=== PATIENT | female | born 1960 | race Caucasian/White ===

== ENCOUNTER 2018-09-08 16:02 | Observation (INO) | payer BC, OTHER ==
[~2018-09-08] VITALS: Ht 154.9 cm; Wt 60.0 kg
--- NOTE | 2018-09-08 16:57 | STROKE ---
Date/Time of Note Date/Time of Note DATE: 09/08/18 TIME: 16:54 Patient Information General Patient location: emergency Arrival Date Age 57 Gender female Weight 60 kg Vital Signs Vital Signs Vital Signs Date Temp Pulse Resp B/P (MAP) Pulse Ox O2 O2 Flow FiO2 Time Delivery Rate 09/08/18 98.1 67 18 127/91 99 16:09 (103) Patient History Current Medications Allergies: Coded Allergies: Penicillins (Verified Allergy, Unknown, 09/08/18) Labs Coagulation Labs: Coagulation Test 09/08/18 16:25 Activated Partial Thromboplast Time 28.0 Sec (23.0-35.0) History & Physical History of Present Illness 57 F PMH HTN LKW 0900 PST with right-sided numbness in the face and arm. Symptoms have improved but she still has some mild right hemianesthesia. NIH Stroke Scale NIH Stroke Scale [id number] Total Score: [id number] Date/Time Recorded DATE: 09/08/18 TIME: 16:40 Submitted By Dominic Romero t-PA Imaging Review Date/Time Imaging Reviewed DATE: 09/08/18 TIME: 16:54 t-PA Administration Weight 60 kg Recommedation submitted by Dominic Romero Recommendations Recommendation 57 F with right hemianesthesia. Not in tPA window. No LVO suspected. - F/u formal NCHCT read - Agree with admitting for TIA/stroke studies: MRI Brain, MRA Head/Neck, TTE with bubble, blood cultures, telemetry, EKG, LDL, A1c, SP, PT, OT - Would perform bedside swallow testing in ED and load with ASA 325 mg PO and Plavix 600 mg PO if passes. Would continue ASA at 81 mg PO QD and Plavix at 75 mg PO QD starting tomorrow. Duration of dual-antiplatelet therapy per local Neurology team - Frequent neuro checks per protocol - Strict normonatremia, normothermia, normoglycemia - Permissive SBP to 180 for first 24 hours during stroke work-up - Please consult local Neurologist to guide further recDOMINIC Barbosa MD Sep 08, 2018 16:57
[2018-09-08] MEDS ORDERED: TELM40TA3 PO (17:09)
[2018-09-08] MEDS ORDERED: ACETAMINOPHEN 325 MG TAB PO PRN ×2 (17:30→19:00)
[2018-09-08] MEDS ORDERED: ASPIRIN 325 MG TAB PO ONE (17:30)
[2018-09-08] MEDS ORDERED: ONDANSETRON 4 MG INJ IV PRN ×2 (17:30→19:00)
--- NOTE | 2018-09-08 17:43 | ERD ---
ER Documentation Chief Complaint Chief Complaint numbness in right arm and right side of face started 2 hours ago HPI Patient is a 57-year-old female with hypertension who presents with weakness and numbness. A video band leader was used for the entire history and physical exam. The patient's right arm feels numb in the right side of her face feels numb as well. It started at 9 AM. She had no slurred speech. The symptoms wer e coming and going and lasted 20 minutes at a time. She did take her blood pressure medicines this morning. She does not remember the name of her primary doctor. She said that this morning when it started she could not move her right arm. ROS All systems reviewed and are negative except as per history of present illness. Medications Home Meds Reported Medications Telmisartan (Telmisartan) 40 Mg Tablet, 40 MG PO DAILY, TAB 09/08/18 Allergies Allergies: Coded Allergies: Penicillins (Verified Allergy, Unknown, 09/08/18) PMhx/Soc Hx Cardiac Disorders: Yes (HTN) Hx Alcohol Use: No Hx Substance Use: No Hx Tobacco Use: No Smoking Status: Former smoker FmHx Family History: No diabetes Physical Exam Vitals Vital Signs Date Temp Pulse Resp B/P (MAP) Pulse Ox O2 O2 Flow FiO2 Time Delivery Rate 09/08/18 98.1 67 18 127/91 99 16:09 (103) Physical Exam Const: No acute distress Head: Atraumatic Eyes: Normal Conjunctiva ENT: Normal External Ears, Nose and Mouth. Neck: Full range of motion. No meningismus. Resp: Clear to auscultation bilaterally Cardio: Regular rate and rhythm, no murmurs Abd: Soft, non tender, non distended. Normal bowel sounds Skin: No petechiae or rashes Back: No midline or flank tenderness Ext: No cyanosis, or edema Neur: Awake and alert, cranial nerves II through XII intact, equal bagger meat strength bilaterally, no pronator drift, no slurred speech Psych: Normal Mood and Affect Result Diagram: 09/08/18 1625 09/08/18 1625 Results 24 hrs Laboratory Tests Test 09/08/18 16:25 White Blood Count 5.7 10^3/ul Red Blood Count 4.68 10^6/ul Hemoglobin 12.3 g/dl Hematocrit 39.7 % Mean Corpuscular Volume 84.8 fl Mean Corpuscular Hemoglobin 26.3 pg Mean Corpuscular Hemoglobin Concent 31.0 g/dl Red Cell Distribution Width 13.6 % Platelet Count 220 10^3/UL Mean Platelet Volume 11.8 fl Immature Granulocytes % 0.300 % Neutrophils % 53.3 % Lymphocytes % 36.3 % Monocytes % 7.3 % Eosinophils % 2.3 % Basophils % 0.5 % Nucleated Red Blood Cells % 0.0 /100WBC Immature Granulocytes # 0.020 10^3/ul Neutrophils # 3.1 10^3/ul Lymphocytes # 2.1 10^3/ul Monocytes # 0.4 10^3/ul Eosinophils # 0.1 10^3/ul Basophils # 0.0 10^3/ul Nucleated Red Blood Cells # 0.0 10^3/ul Prothrombin Time 11.8 Sec Prothrombin Time Ratio 0.9 INR International Normalized Ratio 0.86 Activated Partial Thromboplast Time 28.0 Sec Sodium Level 140 mmol/L Potassium Level 3.9 mmol/L Chloride Level 104 mmol/L Carbon Dioxide Level 27 mmol/L Anion Gap 9 Blood Urea Nitrogen 10 mg/dl Creatinine 0.43 mg/dl Est Glomerular Filtrat Rate mL/min > 60 mL/min Glucose Level 124 mg/dl Hemoglobin A1c 5.8 % Calcium Level 8.9 mg/dl Creatine Kinase 84 IU/L Creatine Kinase Index 0.7 Creatinine Kinase MB (Mass) 0.55 ng/ml Troponin I < 0.012 ng/ml Triglycerides Level 456 mg/dl Cholesterol Level 223 mg/dl LDL Cholesterol, Calculated 98 mg/dl HDL Cholesterol 34 mg/dl Cholesterol/HDL Ratio 6.5 RATIO Ethyl Alcohol Level < 10.0 mg/dl Current Medications Medications Dose Sig/Hipolito Start Time Status Last (Trade) Ordered Route PRN Stop Time Admin Dose Reason Admin Aspirin 325 mg ONCE ONCE 09/08/18 DC 09/08/18 (Aspirin) PO 17:30 17:29 09/08/18 17:31 Ondansetron 4 mg ER BRIDGE 09/08/18 HCl (Zofran PRN IV 17:30 Inj) NAUSEA/VOMITI 09/09/18 17:29 NG 650 mg ER BRIDGE 09/08/18 Acetaminophen PRN PO 17:30 (Tylenol .MILD PAIN 09/09/18 17:29 Tab) 1-3 OR TEMP Procedures/MDM CT head read by radiology. CTA of the head and neck read by radiology shows no large vessel occlusion. Patient is a 57-year-old female who presents with symptoms consistent with a TIA. Timeline is as follows: Code stroke was called at the time of my evaluation. Tele-neurology was called at 1630. I spoke with Dr. Romero from telemetry neurology at 1633. He said that given the symptoms the patient would not be a TPA candidate at this time but he would do an evaluation and likely recommend admission for MRI. CT of the head and neck as well as noncontrast CT was read by radiology at 1645. I believe the patient likely has TIA and will need further workup and has potential for acute stroke in the next 48 hours. The patient has an ABCD squared score of 3. The patient will be admitted to the care of Dr. Bello. ABCD Score for TIA from [employer] on 09/08/2018 All calculations should be rechecked by clinician prior to use RESULT SUMMARY: 3 points Per the validation study, 0-3 points: Low Risk 2-Day Stroke Risk: 1.0% 7-Day Stroke Risk: 1.2% 90-Day Stroke Risk: 3.1% INPUTS: Age ? 60 years > 0 = No BP ? 140/90 mmHg > 0 = No Clinical features of the TIA > 2 = Unilateral weakness Duration of symptoms > 1 = 10-59 minutes History of diabetes > 0 = No Departure Diagnosis: Primary Impression: TIA (transient ischemic attack) Additional Impression: Numbness Condition: CELE Sanchez MD Sep 08, 2018 17:43
[2018-09-08 17:57] VITALS: PULSE 64
[2018-09-08 18:07] VITALS: BP 164/81; PULSE 59; RESP 12
[2018-09-08 18:20] VITALS: Ht 154.9 cm; Wt 60.0 kg
[2018-09-08] MEDS ORDERED: hydrALAzine 20 MG INJ IV PRN (19:00)
--- NOTE | 2018-09-08 19:23 | HP ---
Date/Time of Note Date/Time of Note DATE: 09/08/18 TIME: 19:15 Assessment/Plan VTE Prophylaxis SCD contraindicated: other Pharmacological prophylaxis: other Pharm contraindication: other Lines/Catheters IV Catheter Type (from Nrsg): Saline Lock Assessment/Plan Assessment/Plan TIA- Transient Ischemic Attack - Admit to tele - neuro checks - low fat /low chol diet - PT/OT eval - CBC, CMP, TSH, 2-D Echo, Sammy carotid doppler - ASA - Hypertension -- Cozzar 50 mg po daily - Hydralazine 20 mg IV Q6 PRN > [id number] - Former smoker - Reinforce smoking cessation Dw Dr Bello/staff Result Diagram: 09/08/18 1625 09/08/18 1625 Results 24hrs Laboratory Tests Test 09/08/18 16:25 09/08/18 17:18 White Blood Count 5.7 Red Blood Count 4.68 Hemoglobin 12.3 Hematocrit 39.7 Mean Corpuscular Volume 84.8 Mean Corpuscular Hemoglobin 26.3 L Mean Corpuscular Hemoglobin Concent 31.0 L Red Cell Distribution Width 13.6 Platelet Count 220 Mean Platelet Volume 11.8 H Immature Granulocytes % 0.300 Neutrophils % 53.3 Lymphocytes % 36.3 Monocytes % 7.3 Eosinophils % 2.3 Basophils % 0.5 Nucleated Red Blood Cells % 0.0 Immature Granulocytes # 0.020 Neutrophils # 3.1 Lymphocytes # 2.1 Monocytes # 0.4 Eosinophils # 0.1 Basophils # 0.0 Nucleated Red Blood Cells # 0.0 Prothrombin Time 11.8 L Prothrombin Time Ratio 0.9 INR International Normalized Ratio 0.86 Activated Partial Thromboplast Time 28.0 Sodium Level 140 Potassium Level 3.9 Chloride Level 104 Carbon Dioxide Level 27 Anion Gap 9 Blood Urea Nitrogen 10 Creatinine 0.43 L Est Glomerular Filtrat Rate mL/min > 60 Glucose Level 124 Hemoglobin A1c 5.8 Calcium Level 8.9 Creatine Kinase 84 Creatine Kinase Index 0.7 Creatinine Kinase MB (Mass) 0.55 Troponin I < 0.012 Triglycerides Level 456 H Cholesterol Level 223 H LDL Cholesterol, Calculated 98 HDL Cholesterol 34 L Cholesterol/HDL Ratio 6.5 Ethyl Alcohol Level < 10.0 H Urine Color COLORLESS Urine Clarity CLEAR Urine pH 7.0 Urine Specific [place] 1.038 H Urine Ketones NEGATIVE Urine Nitrite NEGATIVE Urine Bilirubin NEGATIVE Urine Urobilinogen NEGATIVE Urine Leukocyte Esterase NEGATIVE Urine Microscopic RBC 0 Urine Microscopic WBC 1 Urine Hemoglobin 2+ H Urine Glucose NEGATIVE Urine Total Protein NEGATIVE Urine Opiates Screen Negative Urine Barbiturates Negative Urine Amphetamines Screen Negative Urine Benzodiazepines Screen Negative Urine Cocaine Screen Negative Urine Cannabinoids Negative HPI/ROS Admit Date/Time Admit Date/Time Sep 08, 2018 at 17:11 Hx of Present Illness HPI Patient is a 57-year-old female with hypertension who presents with weakness and numbness. A video ground crew chief was used for the entire history and physical exam. The patient's right arm feels numb in the right side of her face feels numb as well. It started at 9 AM. She had no slurred speech. The symptoms were coming and going and lasted 20 minutes at a time. She did take her blood pressure medicines this morning. She does not remember the name of her primary doctor. She said that this morning when it started she could not move her right arm. ROS All systems reviewed and are negative except as per history of present illness. Medications Home Meds Reported Medications Telmisartan (Telmisartan) 40 Mg Tablet, 40 MG PO DAILY, TAB 09/08/18 Allergies Penicillins (Verified Allergy, Unknown, 09/08/18) PMhx/Soc Hx Cardiac Disorders: Yes (HTN) Hx Alcohol Use: No Hx Substance Use: No Hx Tobacco Use: No Smoking Status: Former smoker FmHx Family History: No diabetes ROS Eyes: no complaints ENT: no complaints Respiratory: no complaints Cardiovascular: no complaints Gastrointestinal: no complaints Genitourinary: no complaints Skin: no complaints Neurologic: focal-weakness (right arm, stated better than before) PMH/Family/Social Past Medical History Medications Current Medications Ondansetron HCl (Zofran Inj) 4 mg Q6 PRN IV NAUSEA AND/OR VOMITING; Start 09/08/18 at 19:00 Acetaminophen (Tylenol Tab) 650 mg Q6H PRN PO MILD PAIN(1-3)OR ELEVATED TEMP; Start 09/08/18 at 19:00 Coded Allergies: Penicillins (Verified Allergy, Unknown, 09/08/18) Social History Smoking Status: Never smoker Exam/Review of Systems Vital Signs Vitals Vital Signs Date Temp Pulse Resp B/P (MAP) Pulse Ox O2 O2 Flow FiO2 Time Delivery Rate 09/08/18 97.7 59 12 164/81 98 Room Air 18:07 (108) Exam Constitutional: alert, oriented, well developed Psych: nl mood/affect Head: normocephalic Eyes: nl lids, nl sclera ENMT: nl external ears & nose Neck: non-tender Respiratory: clear to auscultation Cardiovascular: nl pulses Gastrointestinal: soft, non-tender Musculoskeletal: nl extremities to inspection Extremities: normal pulses Neurological: nl mental status, nl speech Skin: nl turgor Lymph: nontender MARYLIN DUMAS Sep 08, 2018 19:23
[2018-09-08 20:00] VITALS: PULSE 66
[2018-09-08 20:17] VITALS: BP 168/85; PULSE 54; RESP 16
[2018-09-08] MEDS: LOSARTAN 50 MG TAB PO SCH (20:26)
[2018-09-09] VITALS (10 sets, daily range): BP systolic 125–147; BP diastolic 70–80; PULSE 53–67; RESP 16–18
[2018-09-09] MEDS: PANTOPRAZOLE (EC) 40 MG TAB PO SCH (06:23)
[2018-09-09] MEDS: ENOXAPARIN 40 MG/0.4 ML SYG SC SCH (09:00)
[2018-09-09] MEDS ORDERED: ASPIRIN (EC) 81 MG TAB PO SCH (09:00)
[2018-09-09] MEDS: LOSARTAN 50 MG TAB PO SCH (09:17)
--- NOTE | 2018-09-09 11:18 | CONS ---
Assessment/Plan Assessment/Plan Hospital Course 57 F c/ reported Hx of HTN, who presents for evaluation of transient R face and arm weakness and numbness...for which neurology is consulted. The clinical picture is most ominously concerning for TIA/minor stroke... Head CT is unremarkable.. CTA head and neck are the same.. LDL 121 A1C wnl; UDS neg P: Add MRI brain for further characterization Add ESR, RPR Await echocardiogram interpretation Agree w/ asa/lipitor daily for stroke prevention for now PT/OT/ST as necessary Other management per primary Will follow clinically Consultation Date/Type/Reason Admit Date/Time Sep 08, 2018 at 17:11 Type of Consult Neurology Reason for Consultation Transient R face and arm weakness and numbness Requesting Provider: MARYLIN DUMAS Date/Time of Note DATE: 09/09/18 TIME: 11:13 Hx of Present Illness Patient is a 57-year-old female with hypertension who presents with weakness and numbness. A video medical office receptionist was used for the entire history and physical exam. The patient's right arm feels numb in the right side of her face feels numb as well. It started at 9 AM. She had no slurred speech. The symptoms were coming and going and lasted 20 minutes at a time. She did take her blood pressure medicines this morning. She does not remember the name of her primary doctor. She said that this morning when it started she could not move her right arm. 12 PT ROS ow neg Exam/Review of Systems Exam Vitals Vital Signs Date Temp Pulse Resp B/P (MAP) Pulse Ox O2 O2 Flow FiO2 Time Delivery Rate 09/09/18 55 08:04 09/09/18 98.2 16 125/71 96 07:33 (89) 09/09/18 Room Air 05:15 Intake and Output 09/08/18 09/08/18 09/09/18 1515:00 23:00 07:00 IntakeIntake Total 400 ml BalanceBalance 400 ml Exam PE: Gen Appearance: No Apparent Distress HEENT: Normocephalic Cardiovascular: Regular rate Lungs: Clear bilaterally Abdomen: Soft Extremities: Dry NE: The patient was alert and oriented. Language was normal. Fund of knowledge was normal. Pupils were equal and reactive to light. There was no afferent pupillary defect. Visual corrales were normal. Funduscopic examination showed sharp disc margins and spontaneous venous pulsations. Extra-ocular movements were full. Ptosis was absent. There was no nystagmus. Facial sensation was normal. Face was symmetric with normal strength. Hearing was intact. Palate movements were normal. Neck strength was normal. There was normal tongue bulk and speed of movement. Tone was normal. Muscle bulk was normal. I did not see fasciculations. Arms and legs were strong. Vibration sensation was normal. Temperature and pinprick sensation was normal. Rapid alternating movements were normal. There was no dysmetria. There was no intention tremor. Gait was deferred due to bedrest. Arm and leg reflexes were symmetric. Martin's sign was absent. Plantar responses were flexor. Results Result Diagram: 09/09/18 0509/[id number]/18520 Results 24hrs Laboratory Tests Test 09/08/18 16:25 09/08/18 17:18 09/09/18 05:21 White Blood Count 5.7 4.8 Red Blood Count 4.68 4.69 Hemoglobin 12.3 12.5 Hematocrit 39.7 39.2 Mean Corpuscular Volume 84.8 83.6 Mean Corpuscular Hemoglobin 26.3 L 26.7 L Mean Corpuscular Hemoglobin Concent 31.0 L 31.9 L Red Cell Distribution Width 13.6 13.7 Platelet Count 220 196 Mean Platelet Volume 11.8 H 11.7 H Immature Granulocytes % 0.300 0.200 Neutrophils % 53.3 50.1 Lymphocytes % 36.3 39.1 Monocytes % 7.3 7.1 Eosinophils % 2.3 2.9 Basophils % 0.5 0.6 Nucleated Red Blood Cells % 0.0 0.0 Immature Granulocytes # 0.020 0.010 Neutrophils # 3.1 2.4 Lymphocytes # 2.1 1.9 Monocytes # 0.4 0.3 Eosinophils # 0.1 0.1 Basophils # 0.0 0.0 Nucleated Red Blood Cells # 0.0 0.0 Prothrombin Time 11.8 L Prothrombin Time Ratio 0.9 INR International Normalized Ratio 0.86 Activated Partial Thromboplast Time 28.0 Sodium Level 140 140 Potassium Level 3.9 4.0 Chloride Level 104 104 Carbon Dioxide Level 27 27 Anion Gap 9 9 Blood Urea Nitrogen 10 11 Creatinine 0.43 L 0.44 Est Glomerular Filtrat Rate mL/min > 60 > 60 Glucose Level 124 92 Hemoglobin A1c 5.8 Calcium Level 8.9 9.0 Creatine Kinase 84 Creatine Kinase Index 0.7 Creatinine Kinase MB (Mass) 0.55 Troponin I < 0.012 Triglycerides Level 456 H 223 H Cholesterol Level 223 H 203 H LDL Cholesterol, Calculated 98 121 HDL Cholesterol 34 L 37 Cholesterol/HDL Ratio 6.5 5.4 Thyroid Stimulating Hormone (TSH) 3.000 Ethyl Alcohol Level < 10.0 H Urine Color COLORLESS Urine Clarity CLEAR Urine pH 7.0 Urine Specific [place] 1.038 H Urine Ketones NEGATIVE Urine Nitrite NEGATIVE Urine Bilirubin NEGATIVE Urine Urobilinogen NEGATIVE Urine Leukocyte Esterase NEGATIVE Urine Microscopic RBC 0 Urine Microscopic WBC 1 Urine Hemoglobin 2+ H Urine Glucose NEGATIVE Urine Total Protein NEGATIVE Urine Opiates Screen Negative Urine Barbiturates Negative Urine Amphetamines Screen Negative Urine Benzodiazepines Screen Negative Urine Cocaine Screen Negative Urine Cannabinoids Negative Total Bilirubin 0.4 Direct Bilirubin 0.00 Indirect Bilirubin 0.4 Aspartate Amino Transf (AST/SGOT) 24 Alanine Aminotransferase (ALT/SGPT) 27 Alkaline Phosphatase 98 Total Protein 6.7 Albumin 3.9 Globulin 2.80 Albumin/Globulin Ratio 1.39 Medications Medication Current Medications Ondansetron HCl (Zofran Inj) 4 mg Q6 PRN IV NAUSEA AND/OR VOMITING; Start 09/08/18 at 19:00 Acetaminophen (Tylenol Tab) 650 mg Q6H PRN PO MILD PAIN(1-3)OR ELEVATED TEMP; Start 09/08/18 at 19:00 Aspirin (Halfprin) 81 mg DAILY PO Last administered on 09/09/18at 09:17; Admin Dose 81 MG; Start 09/09/18 at 09:00 Pantoprazole (Protonix Tab) 40 mg DAILY@06 PO Last administered on 09/09/18at 06:23; Admin Dose 40 MG; Start 09/09/18 at 06:00 Hydralazine HCl (Apresoline) 20 mg Q6H PRN IV ELEVATED SYSTOLIC BP; Start 09/08/18 at 19:00 Losartan Potassium (Cozaar) 50 mg DAILY PO Last administered on 09/09/18at 09:17; Admin Dose 50 MG; Start 09/08/18 at 19:00 Enoxaparin Sodium (Lovenox) 40 mg DAILY SC ; Start 09/09/18 at 09:00 Atorvastatin Calcium (Lipitor) 20 mg HS PO ; Start 09/09/18 at 21:00 Past Medical History reviewed Home Meds Reported Medications Telmisartan (Telmisartan) 40 Mg Tablet, 40 MG PO DAILY, TAB 09/08/18 Medications Current Medications Ondansetron HCl (Zofran Inj) 4 mg Q6 PRN IV NAUSEA AND/OR VOMITING; Start 09/08/18 at 19:00 Acetaminophen (Tylenol Tab) 650 mg Q6H PRN PO MILD PAIN(1-3)OR ELEVATED TEMP; Start 09/08/18 at 19:00 Aspirin (Halfprin) 81 mg DAILY PO Last administered on 09/09/18at 09:17; Admin Dose 81 MG; Start 09/09/18 at 09:00 Pantoprazole (Protonix Tab) 40 mg DAILY@06 PO Last administered on 09/09/18at 06:23; Admin Dose 40 MG; Start 09/09/18 at 06:00 Hydralazine HCl (Apresoline) 20 mg Q6H PRN IV ELEVATED SYSTOLIC BP; Start 09/08/18 at 19:00 Losartan Potassium (Cozaar) 50 mg DAILY PO Last administered on 09/09/18at 09:17; Admin Dose 50 MG; Start 09/08/18 at 19:00 Enoxaparin Sodium (Lovenox) 40 mg DAILY SC ; Start 09/09/18 at 09:00 Atorvastatin Calcium (Lipitor) 20 mg HS PO ; Start 09/09/18 at 21:00 Allergies: Coded Allergies: Penicillins (Verified Allergy, Unknown, 09/08/18) Past Surgical History reviewed Social History Smoking Status: Never smoker JIE UDNBAR Sep 09, 2018 11:18
--- NOTE | 2018-09-09 15:38 | PN ---
Date/Time of Note Date/Time of Note DATE: 09/09/18 TIME: 15:36 Assessment/Plan VTE Prophylaxis Risk score (from Ns)>0 risk: 1 SCD applied (from Nsg): No Lines/Catheters IV Catheter Type (from Nrsg): Saline Lock Urinary Cath still in place: No Assessment/Plan Assessment/Plan TIA- Transient Ischemic Attack - neuro checks - low fat /low chol diet - PT/OT eval - CBC, CMP, TSH, 2-D Echo - Sammy carotid doppler- pending - ASA - MRI Brain today- pending - Hypertension -- Cozzar 50 mg po daily - Hydralazine 20 mg IV Q6 PRN > [id number] - Former smoker - Reinforce smoking cessation Dw Dr Bello/staff Result Diagram: 09/09/1852009/09/18520 Results 24hrs Laboratory Tests Test 09/08/18 16:25 09/08/18 17:18 09/09/18 05:18 09/09/18 05:21 White Blood Count 5.7 4.8 Red Blood Count 4.68 4.69 Hemoglobin 12.3 12.5 Hematocrit 39.7 39.2 Mean Corpuscular 84.8 83.6 Volume Mean Corpuscular 26.3 L 26.7 L Hemoglobin Mean Corpuscular 31.0 L 31.9 L Hemoglobin Concent Red Cell 13.6 13.7 Distribution Width Platelet Count 220 196 Mean Platelet Volume 11.8 H 11.7 H Immature 0.300 0.200 Granulocytes % Neutrophils % 53.3 50.1 Lymphocytes % 36.3 39.1 Monocytes % 7.3 7.1 Eosinophils % 2.3 2.9 Basophils % 0.5 0.6 Nucleated Red Blood 0.0 0.0 Cells % Immature 0.020 0.010 Granulocytes # Neutrophils # 3.1 2.4 Lymphocytes # 2.1 1.9 Monocytes # 0.4 0.3 Eosinophils # 0.1 0.1 Basophils # 0.0 0.0 Nucleated Red Blood 0.0 0.0 Cells # Prothrombin Time 11.8 L Prothrombin Time 0.9 Ratio INR International 0.86 Normalized Ratio Activated 28.0 Partial Thromboplast Time Sodium Level 140 140 Potassium Level 3.9 4.0 Chloride Level 104 104 Carbon Dioxide Level 27 27 Anion Gap 9 9 Blood Urea Nitrogen 10 11 Creatinine 0.43 L 0.44 Est Glomerular > 60 > 60 Filtrat Rate mL/min Glucose Level 124 92 Hemoglobin A1c 5.8 Calcium Level 8.9 9.0 Creatine Kinase 84 Creatine Kinase 0.7 Index Creatinine Kinase MB 0.55 (Mass) Troponin I < 0.012 Triglycerides Level 456 H 223 H Cholesterol Level 223 H 203 H LDL Cholesterol, 98 121 Calculated HDL Cholesterol 34 L 37 Cholesterol/HDL 6.5 5.4 Ratio Thyroid Stimulating 3.000 Hormone (TSH) Ethyl Alcohol Level < 10.0 H Urine Color COLORLESS Urine Clarity CLEAR Urine pH 7.0 Urine Specific 1.038 H [place] Urine Ketones NEGATIVE Urine Nitrite NEGATIVE Urine Bilirubin NEGATIVE Urine Urobilinogen NEGATIVE Urine Leukocyte NEGATIVE Esterase Urine Microscopic 0 RBC Urine Microscopic 1 WBC Urine Hemoglobin 2+ H Urine Glucose NEGATIVE Urine Total Protein NEGATIVE Urine Opiates Screen Negative Urine Barbiturates Negative Urine Amphetamines Negative Screen Urine Negative Benzodiazepines Screen Urine Cocaine Screen Negative Urine Cannabinoids Negative Erythrocyte 9 Sedimentation Rate Total Bilirubin 0.4 Direct Bilirubin 0.00 Indirect Bilirubin 0.4 Aspartate Amino 24 Transf (AST/SGOT) Alanine 27 Aminotransferase (AL T/SGPT) Alkaline Phosphatase 98 Total Protein 6.7 Albumin 3.9 Globulin 2.80 Albumin/Globulin 1.39 Ratio Subjective 24 Hr Interval Summary Constitutional: improved Exam/Review of Systems Exam Vitals Vital Signs Date Temp Pulse Resp B/P (MAP) Pulse Ox O2 O2 Flow FiO2 Time Delivery Rate 09/09/18 98.9 58 16 147/80 98 15:00 (102) 09/09/18 Room Air 05:15 Intake and Output 09/08/18 09/08/18 09/09/18 1414:59 22:59 06:59 IntakeIntake Total 400 ml BalanceBalance 400 ml Constitutional: alert, oriented, well developed Psych: nl mood/affect Head: normocephalic Eyes: EOMI, nl sclera, PERRL ENMT: nl external ears & nose Neck: non-tender Respiratory: clear to auscultation Cardiovascular: nl pulses Gastrointestinal: soft Musculoskeletal: nl extremities to inspection Extremities: normal pulses Neurological: nl mental status, nl speech Lymph: nontender Results Results 24hrs Laboratory Tests Test 09/08/18 16:25 09/08/18 17:18 09/09/18 05:18 09/09/18 05:21 White Blood Count 5.7 4.8 Red Blood Count 4.68 4.69 Hemoglobin 12.3 12.5 Hematocrit 39.7 39.2 Mean Corpuscular 84.8 83.6 Volume Mean Corpuscular 26.3 L 26.7 L Hemoglobin Mean Corpuscular 31.0 L 31.9 L Hemoglobin Concent Red Cell 13.6 13.7 Distribution Width Platelet Count 220 196 Mean Platelet Volume 11.8 H 11.7 H Immature 0.300 0.200 Granulocytes % Neutrophils % 53.3 50.1 Lymphocytes % 36.3 39.1 Monocytes % 7.3 7.1 Eosinophils % 2.3 2.9 Basophils % 0.5 0.6 Nucleated Red Blood 0.0 0.0 Cells % Immature 0.020 0.010 Granulocytes # Neutrophils # 3.1 2.4 Lymphocytes # 2.1 1.9 Monocytes # 0.4 0.3 Eosinophils # 0.1 0.1 Basophils # 0.0 0.0 Nucleated Red Blood 0.0 0.0 Cells # Prothrombin Time 11.8 L Prothrombin Time 0.9 Ratio INR International 0.86 Normalized Ratio Activated 28.0 Partial Thromboplast Time Sodium Level 140 140 Potassium Level 3.9 4.0 Chloride Level 104 104 Carbon Dioxide Level 27 27 Anion Gap 9 9 Blood Urea Nitrogen 10 11 Creatinine 0.43 L 0.44 Est Glomerular > 60 > 60 Filtrat Rate mL/min Glucose Level 124 92 Hemoglobin A1c 5.8 Calcium Level 8.9 9.0 Creatine Kinase 84 Creatine Kinase 0.7 Index Creatinine Kinase MB 0.55 (Mass) Troponin I < 0.012 Triglycerides Level 456 H 223 H Cholesterol Level 223 H 203 H LDL Cholesterol, 98 121 Calculated HDL Cholesterol 34 L 37 Cholesterol/HDL 6.5 5.4 Ratio Thyroid Stimulating 3.000 Hormone (TSH) Ethyl Alcohol Level < 10.0 H Urine Color COLORLESS Urine Clarity CLEAR Urine pH 7.0 Urine Specific 1.038 H [place] Urine Ketones NEGATIVE Urine Nitrite NEGATIVE Urine Bilirubin NEGATIVE Urine Urobilinogen NEGATIVE Urine Leukocyte NEGATIVE Esterase Urine Microscopic 0 RBC Urine Microscopic 1 WBC Urine Hemoglobin 2+ H Urine Glucose NEGATIVE Urine Total Protein NEGATIVE Urine Opiates Screen Negative Urine Barbiturates Negative Urine Amphetamines Negative Screen Urine Negative Benzodiazepines Screen Urine Cocaine Screen Negative Urine Cannabinoids Negative Erythrocyte 9 Sedimentation Rate Total Bilirubin 0.4 Direct Bilirubin 0.00 Indirect Bilirubin 0.4 Aspartate Amino 24 Transf (AST/SGOT) Alanine 27 Aminotransferase (AL T/SGPT) Alkaline Phosphatase 98 Total Protein 6.7 Albumin 3.9 Globulin 2.80 Albumin/Globulin 1.39 Ratio Medications Medication Current Medications Ondansetron HCl (Zofran Inj) 4 mg Q6 PRN IV NAUSEA AND/OR VOMITING; Start 09/08/18 at 19:00 Acetaminophen (Tylenol Tab) 650 mg Q6H PRN PO MILD PAIN(1-3)OR ELEVATED TEMP; Start 09/08/18 at 19:00 Aspirin (Halfprin) 81 mg DAILY PO Last administered on 09/09/18at 09:17; Admin Dose 81 MG; Start 09/09/18 at 09:00 Pantoprazole (Protonix Tab) 40 mg DAILY@06 PO Last administered on 09/09/18at 06:23; Admin Dose 40 MG; Start 09/09/18 at 06:00 Hydralazine HCl (Apresoline) 20 mg Q6H PRN IV ELEVATED SYSTOLIC BP; Start 09/08/18 at 19:00 Losartan Potassium (Cozaar) 50 mg DAILY PO Last administered on 09/09/18at 09:17; Admin Dose 50 MG; Start 09/08/18 at 19:00 Enoxaparin Sodium (Lovenox) 40 mg DAILY SC ; Start 09/09/18 at 09:00 Atorvastatin Calcium (Lipitor) 20 mg HS PO ; Start 09/09/18 at 21:00 MARYLIN DUMAS Sep 09, 2018 15:38
[2018-09-09] MEDS: ATORVASTATIN 20 MG TAB PO SCH (20:42)
[2018-09-09] MEDS ORDERED: DIPHENHYDRAMINE 25 MG CAP PO PRN (21:30)
[2018-09-10] VITALS (9 sets, daily range): BP systolic 111–134; BP diastolic 58–95; PULSE 56–83; RESP 16–19
[2018-09-10] MEDS: PANTOPRAZOLE (EC) 40 MG TAB PO SCH (06:36)
[2018-09-10] MEDS: LOSARTAN 50 MG TAB PO SCH (09:00)
[2018-09-10] MEDS: ENOXAPARIN 40 MG/0.4 ML SYG SC SCH (09:00)
--- NOTE | 2018-09-10 14:17 | CONS ---
Assessment/Plan Assessment/Plan Hospital Course 57 F c/ reported Hx of HTN, who presents for evaluation of transient R face and arm weakness and numbness...for which neurology is consulted. The clinical picture is most ominously concerning for TIA/minor stroke... MRI brain is reassuringly without acute intracranial pathology. CTA head and neck are the same.. LDL 121 ESR, A1C wnl; UDS, RPR neg P: Await echocardiogram interpretation Agree w/ asa/lipitor daily for stroke prevention for now PT/OT/ST as necessary Other management per primary Will follow clinically Consultation Date/Type/Reason Admit Date/Time Sep 08, 2018 at 17:11 Type of Consult Neurology Requesting Provider: MARYLIN DUMAS Date/Time of Note DATE: 09/10/18 TIME: 14:17 24 HR Interval Summary Free Text/Dictation Continues acute care. S/p MRI. Pt denies weakness/numbness at this time. Exam Vital Signs Vitals Vital Signs Date Temp Pulse Resp B/P (MAP) Pulse Ox O2 O2 Flow FiO2 Time Delivery Rate 09/10/18 70 12:12 09/10/18 97.6 16 120/70 97 11:17 (87) 09/09/18 Room Air 05:15 Intake and Output 09/09/18 09/09/18 09/10/18 1515:00 23:00 07:00 IntakeIntake Total 900 ml 300 ml BalanceBalance 900 ml 300 ml Exam PE: Gen Appearance: No Apparent Distress HEENT: Normocephalic Cardiovascular: Regular rate Lungs: Clear bilaterally Abdomen: Soft Extremities: Dry NE: The patient was alert and oriented. Language was normal. Fund of knowledge was normal. Pupils were equal and reactive to light. There was no afferent pupillary defect. Visual corraels were normal. Funduscopic examination was limited. Extra-ocular movements were full. Ptosis was absent. There was no nystagmus. Facial sensation was normal. Face was symmetric with normal strength. Hearing was intact. Palate movements were normal. Neck strength was normal. There was normal tongue bulk and speed of movement. Tone was normal. Muscle bulk was normal. I did not see fasciculations. Arms and legs were strong. Vibration sensation was normal. Temperature and pinprick sensation was normal. Rapid alternating movements were normal. There was no dysmetria. There was no intention tremor. Gait was deferred due to bedrest. Arm and leg reflexes were symmetric. Martin's sign was absent. Plantar response s were flexor. HUMPHREY WEAVER NP Sep 10, 2018 14:17
[2018-09-10] MEDS ORDERED: ASPI-817 PO (17:38)
[2018-09-10] MEDS ORDERED: ATOR20TA38 PO (17:38)
--- NOTE | 2018-09-10 17:50 | RADRPT ---
Echocardiogram Report Patient Name: HARDY PARKPatient ID: [id number] : 1960 (57y 9m)Study Date: 09/09/2018 7:41:46 AM Gender: FAccession #: [id number] Tech: KRISTI Gonzales [facility] Location: [facility] Ref.Physician: MARYLIN DUMAS Height(Cm): BSA: Weight(Kg): Quality: AdequateAccount #: Procedures: Echocardiographic Report: Transthoracic echocardiogram with complete 2D, M-Mode, and doppler examination. Indications: Congestive Heart Failure. Measurements: 2D/M Mode Doppler Measurement Value Normal Range Measurement Value Normal Range LVIDd 2D 2.8 [ 3.8 - 5.2 ] cm AV Peak [place] 1.5 [ 100.0 - 170.0 ] cm/se c LVIDs 2D 1.9 [ 2.2 - 3.5 ] cm AV Peak PG 9.0 [ 2.0 - 9.0 ] mmHg LVPWd 2D 1.1 [ 0.6 - 0.9 ] cm LVOT Peak [place] 1.1 [ 70.0 - 110.0 ] cm/sec IVSd 2D 0.8 [ 0.6 - 0.9 ] cm LVOT Peak PG 5.0 [ 2.0 - 6.0 ] mmHg AoR Diam 2D 2.8 [ 2.3 - 3.1 ] cm MV E Peak [place] 0.9 [ 60.0 - 130.0 ] cm/sec EDV 2D 29.3 [ 46.0 - 106.0 ] ml MV A Peak [place] 0.3 [ 100.0 - 120.0 ] cm/se c ESV 2D 10.6 [ 14.0 - 42.0 ] ml MV E/A 3.4 [ 0.8 - 1.5 ] ratio EF 2D 63.8 [ 54.0 - 74.0 ] percent MV PHT 41.0 [ 20.0 - 100.0 ] msec LA Dimen 2D 3.1 [ 2.7 - 3.8 ] cm MV Decel Time 141 [ 104 - 258 ] msec MV Decel [place] 6 Lat E` Channing 0.1 [ 10.0 - 15.0 ] cm/sec Lateral E/E` 16.0 [ 1.0 - 2.0 ] ratio Med E` [place] 0.1 cm/sec MV E/A 3.4 [ 0.8 - 1.5 ] ratio MVA PHT 5.4 [ 2.0 - 4.0 ] cm2 TR Peak [place] 2.2 [ 100.0 - 280.0 ] cm/se c TR Peak PG 19.0 mmHg Findings: Left Ventricle: Normal left ventricular systolic function. Normal left ventricular cavity size. Normal left ventricular wall thickness. Ejection fraction is visually estimated at 55-60 %. Right Ventricle: Normal right ventricular size. Normal right ventricular systolic function. Left Atrium: The left atrium is normal in size. Right Atrium: The right atrium is normal in size. Atrial Septum: Normal atrial septum. Ventricular septum: Normal/intact ventricular septum. Mitral Valve: Normal appearance of the mitral valve. Trace mitral regurgitation. Aortic Valve: Normal appearance of the aortic valve. No aortic regurgitation. Tricuspid Valve: Normal appearance of the tricuspid valve. Unable to obtain RVSP due to minimal presence of tricuspid regurgitation. There is trace tricuspid regurgitation. Pulmonic Valve: Normal pulmonic valve appearance. No evidence of pulmonic regurgitation. Pericardium: Normal pericardium with no significant pericardial effusion. Aorta: Normal aortic root. IVC: Normal size and normal respiratory collapse consistent with normal right atrial pressure. Conclusions: Normal left ventricular systolic function. Normal left ventricular cavity size. Normal left ventricular wall thickness. Ejection fraction is visually estimated at 55-60 %. Normal appearance of the mitral valve. Trace mitral regurgitation. Normal appearance of the aortic valve. No aortic regurgitation. Normal appearance of the tricuspid valve. Unable to obtain RVSP due to minimal presence of tricuspid regurgitation. There is trace tricuspid regurgitation. Electronically Signed By: Toby Galeas 2018-09-10 17:50:04 PDT
[2018-09-10] MEDS: ATORVASTATIN 20 MG TAB PO SCH (19:40)
== END 2018-09-10 20:20 | disposition home or self-care (01) ==
LOC: E/R 16:02 → 6WM 17:11
PROVIDERS: ADMIT Internal Medicine; ATTEND Internal Medicine
DX: G45.9 Transient cerebral ischemic attack, unspecified (principal); I10 Essential (primary) hypertension; Z87.891 Personal history of nicotine dependence
CPT/HCPCS: 36415; 70450; 70496; 70498; 70551; 71045; 80048; 80053; 80061; 80307; 81001; 82550; 82553; 83036; 84443; 84484; 85025; 85610; 85651; 85730; 86592; 92610; 93005; 93306; 97161; 99291; G0378; J1650